=== PATIENT | female | born 1940 | race Caucasian/White ===

== ENCOUNTER 2017-04-25 07:52 | Day surgery (SDC) | payer OTHER, MEDICARE ==
[2017-04-25] MEDS ORDERED: LR 1,000 ML IV ONE (08:04)
[2017-04-25] MEDS ORDERED: PROPOFOL/EMULSION 500 MG/50 ML BOTTLE IV ONE ×2 (09:10→09:46)
--- NOTE | 2017-04-25 09:22 | PDGENHP ---
History & Physical Outpatient Chief Complaint: diarrhea, abodminal pain History of Present Illness: 77 year old female presents for evaluatin of abdominal pain and diarrhea. Had EGD about 5 years ago with lymphocytosis. Blood work for sprue negative Pertinent Past, Social, Family History: SoHx: No cigs or etoh. FaMHx; No crc. PMHx: HTN Relevant Physical Exam: HEENT: anicteric. CV: RRR +s1s2. Lungs: CTAB. NO w/r/ r. Abd: soft, nt, +bs. NO g/r/ Cardiorespiratory Assessment: ASA2
[2017-04-25 09:23] LABS: ANION GAP 9 mEq/L (8-16); CALCIUM 9.3 mg/dL (8.5-10.4); CARBON DIOXIDE 26 mEq/l (22-31); CHLORIDE 103 mEq/L (97-110); CREATININE 0.6 mg/dL (0.6-1.0); GLOMERULAR FILTRATION RATE > 60; GLUCOSE 92 mg/dL (70-100); POTASSIUM 3.5 mEq/L (3.5-5.2); SODIUM 138 mEq/L (134-144)
--- NOTE | 2017-04-25 09:23 | PDANEPAE ---
ANE Past Medical History Past Medical History: hx vasovagal episode 1988. no sx for many years - Cardiovascular History Hx Hypertension: Yes Hx Arrhythmias: Yes Hx Chest Pain: No Hx Coronary Artery / Peripheral Vascular Disease: No Hx CHF / Valvular Disease: No Hx Palpitations: No - Pulmonary History Hx COPD: No Hx Asthma/Reactive Airway Disease: No Hx Recent Upper Respiratory Infection: No Hx Oxygen in Use at Home: No - Neurologic History Hx Cerebrovascular Accident: No Hx Seizures: No Hx Dementia: No - Endocrine History Hx Diabetes: No - Renal History Hx Renal Disorders: No - Liver History Hx Hepatic Disorders: No - Neurological & Psychiatric Hx Hx Neurological and Psychiatric Disorders: Yes - Cancer History Hx Cancer: Yes - Congenital Disorder History Hx Congenital Disorders: No - GI History Hx Gastrointestinal Disorders: Yes - Chronic Pain History Chronic Pain: Yes (BACK PAIN) ANE Review of Systems - Exercise capacity METS (RN): 4 METS ANE Patient History - Allergies Allergies/Adverse Reactions: bupivacaine [From Marcaine] Allergy (Verified 04/24/17 15:45) Other-Enter Comments fentanyl Allergy (Verified 04/24/17 15:45) Other-Enter Comments midazolam [From Versed] Allergy (Verified 04/24/17 15:45) Other-Enter Comments - Home Medications Home Medications: Aspirin 81mg (*) 04/24/17 [Last Taken 04/21/17] Atorvastatin Calcium 04/24/17 [Last Taken 04/23/17] HCTZ (*) 04/24/17 [Last Taken 04/24/17] Herbals/Supplements -Info Only 04/24/17 [Last Taken 04/24/17] Lisinopril 04/24/17 [Last Taken 04/24/17] Tums 500MG (*) 04/24/17 [Last Taken 04/23/17] Zantac 04/24/17 [Last Taken 04/24/17] - NPO status NPO Since - Liquids (Date): 04/24/17 NPO Since - Liquids (Time): 23:30 NPO Since - Solids (Date): 04/24/17 NPO Since - Solids (Time): 17:00 - Smoking Hx Smoking Status: Never smoked - Family Anes Hx Family Hx Anesthesia Complications: NONE ANE Labs/Vital Signs - Labs Result Diagrams: 04/25/17 08:42 - Vital Signs Blood Pressure: 176/86 Heart Rate: 81 Respiratory Rate: 14 O2 Sat (%): 96 Height: 163.83 cm Weight: 58.967 kg
[2017-04-25] MEDS ORDERED: NS 500 ML IV SCH (09:30)
--- NOTE | 2017-04-25 10:07 | POSTOPPROG ---
Post Op Note Date of Operation: 04/25/17 Surgeon: Maximo Bangura Pre-op Diagnosis: diarrhea, abodminal pain Post-op Diagnosis: gastritis, HH, Indication: diarrhead and abdominal pain Procedure: EGD with bx, Colonoscopy w random bx Findings: + diverticulosis, gastritis, HH Inf/Abcess present in the surg proc area at time of surgery?: No
[2017-04-25] MEDS ORDERED: LR 500 ML IV PRN (10:10)
[2017-04-25] MEDS ORDERED: NALOXONE HCL 0.4 MG/ML INJ IVP PRN (10:10)
[2017-04-25] MEDS ORDERED: ALBUTEROL 3 ML DEYVIAL IH PRN (10:10)
[2017-04-25] MEDS ORDERED: ACETAMINOPHEN 500 MG TAB PO PRN (10:10)
--- NOTE | 2017-04-25 10:11 | POSTANESTH ---
Post Anesthetic Evaluation Respiratory Status: Similar to Pre-op Cond. Level of Consciousness/Mental Status: Mildly Sleepy, Arousable Pain Control: Adequate, Prn Tx Ordered Nausea/Vomiting Control: Adequate, Prn Tx Ordered Complications Possibly Related to Anesthesia: None Noted
--- NOTE | 2017-04-25 10:19 | GPN ---
[f rep st] PROCEDURE NOTE DATE OF PROCEDURE: 04/25/2017 PROCEDURE: Esophagogastroduodenoscopy with biopsy. INDICATION: The patient is a 77-year-old female who presents with complaints of abdominal pain and diarrhea. She had a prior EGD approximately 5 years ago which did reveal lymphocytosis on duodenal biopsies which may represent celiac disease. She presents for further evaluation. CONSENT: Risks, benefits, and alternatives of the procedure were discussed in great detail with the patient. Risks of infection, bleeding, perforation, and sedation were discussed. All questions answered. Informed consent was obtained. MEDICATIONS: Propofol. Please see Anesthesia record for details. ESTIMATED BLOOD LOSS: Insignificant. ESOPHAGOGASTRODUODENOSCOPY EXAMINATION: The Olympus upper endoscope was introduced into the mouth and esophagus. The proximal and mid esophagus were normal in appearance. The patient had an irregular Z-line with 1 tongue of columnar epithelium extending approximately 1.5 cm above the gastroesophageal junction. Biopsies were taken. The stomach was entered and closely examined, including retroflexed views of angularis, cardia and fundus. A large hiatal hernia was noted. The mucosa in the antrum and the body of the stomach was erythematous in a patchy distribution. The duodenal bulb and second portion of duodenum were normal in appearance. No endoscopic stigmata of celiac sprue were seen. Multiple biopsies were taken. IMPRESSION: 1. 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 2. Large hiatal hernia. 3. Gastritis, status post biopsy. 4. Multiple biopsies of the duodenum to rule out celiac disease were taken. RECOMMENDATIONS: 1. Follow up on biopsy results. 2. Proceed with colonoscopy. /[id number]/MODL MTDD
[2017-04-25 10:25] VITALS: TEMP 97.9
--- NOTE | 2017-04-25 10:44 | GPN ---
[f rep st] PROCEDURE NOTE DATE OF PROCEDURE: 04/25/2017 PROCEDURE: Colonoscopy with biopsy. INDICATION: The patient is a 77-year-old female, who presents for evaluation of a change in her bowel habits/diarrhea. She presents for further evaluation. CONSENT: Risks, benefits, and alternatives of the procedure were discussed in great detail with the patient. Risks of infection, bleeding, perforation, and sedation were discussed. All questions answered and informed consent was obtained. MEDICATIONS: Propofol. Please see Anesthesiology record for details. ESTIMATED BLOOD LOSS: Insignificant. COLONOSCOPIC EVALUATION: A rectal exam was done and patient noted to have internal hemorrhoids. The scope was introduced into the rectum and advanced to cecum, where the ileocecal valve and appendiceal orifice were seen. The terminal ileum was intubated. The quality of prep was good. The colonic mucosa was carefully examined on both insertion and withdrawal of the scope. The patient was noted to have sigmoid diverticulosis. Random biopsies were taken throughout the colon to rule out microscopic colitis. IMPRESSION: 1. Diverticulosis. 2. Random biopsies were taken to rule out microscopic colitis. 3. Follow up on biopsy results. 4. Follow up in the office as directed /[id number]/MODL MTDD
[2017-04-25 11:23] VITALS: BP 158/88; PULSE 57; RESP 14; O2SAT 95
== END 2017-04-25 11:56 | disposition home or self-care (01) ==
LOC: FSGY 07:52
PROVIDERS: ATTEND Internal Medicine Gastroenterology
DX: K57.30 Diverticulosis of large intestine without perforation or abscess without bleeding (principal); K44.9 Diaphragmatic hernia without obstruction or gangrene; K29.70 Gastritis, unspecified, without bleeding; K64.8 Other hemorrhoids
CPT/HCPCS: J2704

== ENCOUNTER → 2017-05-08 | Outpatient (CLI) | payer OTHER, MEDICARE | LOC: BRMIMAGING 10:12 | PROVIDERS: ATTEND Internal Medicine Rheumatology | DX: Z13.820 Encounter for screening for osteoporosis (principal); M85.80 Other specified disorders of bone density and structure, unspecified site; Z82.62 Family history of osteoporosis ==

== ENCOUNTER → 2017-09-06 | Outpatient (CLI) | payer OTHER, MEDICARE | LOC: FIMAGING 10:25 | PROVIDERS: ATTEND Internal Medicine Rheumatology | DX: M25.841 Other specified joint disorders, right hand (principal); M25.842 Other specified joint disorders, left hand ==

== ENCOUNTER → 2018-01-14 | Outpatient (CLI) | payer OTHER, MEDICARE | LOC: BHFA 10:45 | PROVIDERS: ATTEND Internal Medicine Cardiovascular Disease | DX: I25.10 Atherosclerotic heart disease of native coronary artery without angina pectoris (principal) ==

== ENCOUNTER → 2018-01-22 | Outpatient (CLI) | payer OTHER, MEDICARE | LOC: BHLMT 13:30 | PROVIDERS: ATTEND Internal Medicine Interventional Cardiology | DX: R07.9 Chest pain, unspecified (principal); I25.10 Atherosclerotic heart disease of native coronary artery without angina pectoris; R06.02 Shortness of breath; I71.2 Thoracic aortic aneurysm, without rupture | CPT/HCPCS: 78452; 93017; A9500 ==

== ENCOUNTER 2018-08-19 11:01 | Day surgery (SDC) | payer OTHER, MEDICARE ==
[2018-08-19] MEDS ORDERED: LR 1,000 ML IV ONE (11:48)
--- NOTE | 2018-08-19 12:26 | PDANEPAE ---
ANE History of Present Illness Barrettes ANE Past Medical History - Cardiovascular History Hx Hypertension: Yes Hx Arrhythmias: Yes Hx Chest Pain: No Hx Coronary Artery / Peripheral Vascular Disease: Yes Hx CHF / Valvular Disease: No Hx Palpitations: No Cardiovascular History Comment: HYPERLIPIDEMIA. HAS BEEN TOLD OCCASSIONALLY SHE HAS A MURMUR. PCP MONITORS BP MEDICATIONS - Pulmonary History Hx COPD: No Hx Asthma/Reactive Airway Disease: No Hx Recent Upper Respiratory Infection: No Hx Oxygen in Use at Home: No Hx Sleep Apnea: No Sleep Apnea Screening Result - Last Documented: Negative Pulmonary History Comment: has had sleep study which was borderline - does not use any Cpap. States does not have VAHID. - Neurologic History Hx Cerebrovascular Accident: No Hx Seizures: No Hx Dementia: No Neurologic History Comment: SPINAL STENOSIS - Endocrine History Hx Diabetes: No - Renal History Hx Renal Disorders: No - Liver History Hx Hepatic Disorders: No - Neurological & Psychiatric Hx Hx Neurological and Psychiatric Disorders: Yes Neurological / Psychiatric History Comment: ANXIETY- NO MEDICATIONS - Cancer History Hx Cancer: Yes Cancer History Comment: CLL - Congenital Disorder History Hx Congenital Disorders: No - GI History Hx Gastrointestinal Disorders: Yes Gastrointestinal History Comment: Hernias. REFLUX - Barretts Esophagus. CONSTIPATION. DIARRHEA - Other Health History Other Health History: WEARS GLASSES - Chronic Pain History Chronic Pain: Yes (BACK PAIN) - Surgical History Prior Surgeries: EDG, Colonoscopy, 04/2017. HERNIA REPAIR LAST ON IN 1988 ( MULTIPLE HERNIA REPAIRS) VENTRAL AND INGUINAL ANE Review of Systems Review of Systems: - Exercise capacity METS (RN): 4 METS ANE Patient History - Allergies Allergies/Adverse Reactions: bupivacaine [From Marcaine] Allergy (Verified 08/08/18 12:34) Asystole fentanyl Allergy (Verified 08/08/18 12:25) Asystole midazolam [From Versed] Allergy (Verified 08/08/18 12:25) Asystole - Home Medications Home Medications: Aspirin [Aspirin 81mg (*)] 04/24/17 [Last Taken 08/14/18] Atorvastatin Calcium [Lipitor 10 mg (*)] 04/24/17 [Last Taken 1 Day Ago ~] Calcium Carbonate [Tums 500MG (*)] 04/24/17 [Last Taken 08/15/18] Hydrochlorothiazide [HCTZ (*)] 04/24/17 [Last Taken 1 Day Ago ~08/18/18] Lisinopril [Zestril 40 mg (*)] 04/24/17 [Last Taken 1 Day Ago ~08/18/18] Ranitidine HCl [Zantac] 04/24/17 [Last Taken 1 Day Ago ~08/18/18] Ascorbic Acid [Vitamin C 500 mg (*)] 02/01/18 [Last Taken 08/15/18] Cholecalciferol Vit D3 [Vitamin D3 2000 units tab (OTC)] 02/01/18 [Last Taken 08/14/18] Cyanocobalamin [Vitamin B12 (*)] 02/01/18 [Last Taken 08/14/18] Denosumab [Prolia] 02/01/18 [Last Taken 02/13/18] - NPO status NPO Since - Liquids (Date): 08/19/18 NPO Since - Liquids (Time): 03:00 NPO Since - Solids (Date): 08/18/18 NPO Since - Solids (Time): 11:50 - Anes Hx Hx Anesthesia Complications (with details): Had episode of asystole with versed , fentanyl and marcaine - Smoking Hx Smoking Status: Never smoked - Family Anes Hx Family Hx Anesthesia Complications: NONE ANE Labs/Vital Signs - Vital Signs Blood Pressure: 187/86 Heart Rate: 65 Respiratory Rate: 20 O2 Sat (%): 95 Height: 162.56 cm Weight: 59.874 kg ANE Physical Exam - Airway Neck exam: FROM Mallampati Score: Class 2 Mouth exam: normal dental/mouth exam - Pulmonary Pulmonary: no respiratory distress - Cardiovascular Cardiovascular: regular rate and rhythym ANE Anesthesia Plan Anesthesia Plan: MAC (vs IV GA)
[2018-08-19] MEDS ORDERED: PROPOFOL 200 MG/20 ML VIAL ONE (12:36)
[2018-08-19] MEDS ORDERED: INDOMETHACIN 50 MG SUPP PR PRN (12:37)
--- NOTE | 2018-08-19 12:37 | PDGENHP ---
History & Physical Chief Complaint: barretts History of Present Illness: 78 year old female presents for surveillance of Barretts esopahgus. Pertinent Past, Social, Family History: PMHx; spinal stenosis, anxiety, hyperlipidemia Relevant Physical Exam: HEENT: anicteric. Cv: RRR +s1s2. lungs: CTAB. Abd: soft, nt, +Bs Cardiorespiratory Assessment: ASA 2
[2018-08-19] MEDS ORDERED: NALOXONE HCL 0.4 MG/ML INJ IVP PRN (12:38)
[2018-08-19] MEDS ORDERED: NS 500 ML IV SCH (12:45)
--- NOTE | 2018-08-19 13:06 | POSTANESTH ---
Post Anesthetic Evaluation Cardiovascular Status: Similar to Pre-Op Cond Respiratory Status: Similar to Pre-op Cond. Level of Consciousness/Mental Status: Can Participate in Eval Pain Control: Adequate, Prn Tx Ordered Nausea/Vomiting Control: Adequate, Prn Tx Ordered Complications Possibly Related to Anesthesia: None Noted
--- NOTE | 2018-08-19 13:08 | GIREPORT ---
[facility] - Endoscopy Department Patient Name: Ita Alexander Procedure Date: 08/19/2018 12:47 PM Patient Type: Outpatient Attending MD/ ER Physician: Maximo Bangura MD Procedure: Upper GI endoscopy Indications: Follow-up of Gee's esophagus Patient Profile: 78 year old female presents for surviellance of Gee's esophagus. Providers: Maximo Bangura MD Medicines: Monitored Anesthesia Care Complications: No immediate complications. Estimated blood loss: Minimal. Description of Procedure: After obtaining informed consent, the endoscope was passed under direct vision. Throughout the procedure, the patient's blood pressure, pulse, and oxygen saturations were monitored continuously. The was introduced thro ugh the mouth, and advanced to the second part of duodenum. The upper GI endoscopy was accomplished without difficulty. The patient tolerated th e procedure well. Findings: The Z-line was irregular. Biopsies were taken with a cold forceps for histology. A hiatal hernia was present. Patchy mildly erythematous mucosa was found in the gastric body and in the gastric antrum. Biopsies were taken with a cold forceps for histology. The examined duodenum was normal. Estimated Blood Loss: Estimated blood loss was minimal. Post Op Diagnosis: - Z-line irregular with two tongues of columnar appearing epithelium extending 1cm into the tubular esophagus. Biopsied. - Hiatal hernia. - Erythematous mucosa in the gastric body and antrum. Biopsied. - Normal examined duodenum. Recommendation: - Discharge patient to home (with escort). - Resume previous diet. - Continue present medications. - Await pathology results. - Repeat upper endoscopy for surveillance based on pathology results. - Follow an antireflux regimen. - Use a proton pump inhibitor PO daily. Attending Participation: I personally performed the entire procedure. Maximo Bangura MD Maximo Bangura MD 08/19/2018 1:07:59 PM This report has been signed electronicallyMaximo Bangura MD Number of Addenda: 0 Note Initiated On: 08/19/2018 12:47 PM [email or web address]
[2018-08-19 15:08] VITALS: BP 135/59
== END 2018-08-19 15:06 | disposition home or self-care (01) ==
LOC: FSGY 11:01
PROVIDERS: ATTEND Internal Medicine Gastroenterology
DX: K22.70 Barrett's esophagus without dysplasia (principal); K29.50 Unspecified chronic gastritis without bleeding; K44.9 Diaphragmatic hernia without obstruction or gangrene; E78.5 Hyperlipidemia, unspecified; F41.9 Anxiety disorder, unspecified
CPT/HCPCS: J2704

== ENCOUNTER → 2018-09-05 | Outpatient (CLI) | payer OTHER, MEDICARE | LOC: FIMAGING 09:06 | PROVIDERS: ATTEND Hospitalist | DX: N95.0 Postmenopausal bleeding (principal); R10.31 Right lower quadrant pain; D25.9 Leiomyoma of uterus, unspecified ==

== ENCOUNTER → 2019-05-02 | Outpatient (CLI) | payer OTHER, MEDICARE | LOC: BRMIMAGING 13:17 ==